=== PATIENT | male | born 1995 | race Native Hawaiian/Other Pacific Islander ===

== ENCOUNTER 2022-05-28 17:39 | Emergency (ER) | payer OTHER ==
[~2022-05-28] VITALS: Ht 165.1 cm; Wt 72.6 kg
[2022-05-28 20:05] VITALS: BP 131/85; TEMP 97.8
== END 2022-05-28 20:05 | disposition home or self-care (01) ==
LOC: ED 17:39
PROC: 0H9EXZZ Drainage of Left Lower Arm Skin, External Approach (ICD-10-PCS; principal; 2022-05-28)
DX: L02.414 Cutaneous abscess of left upper limb (principal)
CPT/HCPCS: 87070; 87077; 87185; 87186; 87205; 90471; 90715; 96372; 99283; J1170; J2405

== ENCOUNTER 2022-08-16 06:12 | Emergency (ER) | payer OTHER ==
[~2022-08-16] VITALS: Ht 162.6 cm; Wt 68.0 kg
[2022-08-16 07:11] LABS: PLATELET COUNT 249 K/uL (142-355)
[2022-08-16 07:22] LABS: POTASSIUM 3.6 mmol/L (3.6-5.2)
[2022-08-16 08:19] VITALS: BP 128/75; TEMP 97.9
== END 2022-08-16 08:19 | disposition home or self-care (01) ==
LOC: ED 06:12
PROVIDERS: Emergency Medicine Emergency Medical Services
DX: N13.2 Hydronephrosis with renal and ureteral calculous obstruction (principal); Z87.442 Personal history of urinary calculi
CPT/HCPCS: 80048; 80307; 81000; 85027; 96360; 96374; 96375; 99284; J1170; J1885; J2405

== ENCOUNTER 2023-02-20 15:39 | Emergency (ER) | payer BC ==
[~2023-02-20] VITALS: Ht 162.6 cm; Wt 81.2 kg
[2023-02-20 16:46] LABS: PLATELET COUNT 250 K/uL (142-355)
[2023-02-20 17:06] LABS: POTASSIUM 3.8 mmol/L (3.6-5.2)
[2023-02-20 17:40] VITALS: BP 135/69; TEMP 96.8
== END 2023-02-20 17:40 | disposition home or self-care (01) ==
LOC: ED 15:39
PROVIDERS: Internal Medicine
DX: F41.9 Anxiety disorder, unspecified (principal)
CPT/HCPCS: 80053; 85027; 99283

== ENCOUNTER 2023-03-11 09:38 | Outpatient (CLI) | payer BC | END 2023-03-11 19:29 | disposition home or self-care (01) | LOC: RAD 09:38 | PROVIDERS: ATTEND Internal Medicine | DX: M79.642 Pain in left hand (principal); M79.641 Pain in right hand ==